=== PATIENT | male | born 1990 | race Caucasian/White ===

== ENCOUNTER 2021-06-27 00:38 | Emergency (ER) | payer OTHER ==
[~2021-06-27] VITALS: Ht 165.1 cm; Wt 68.0 kg
[2021-06-27] MEDS ORDERED: CIPR500T5 MT (02:18)
[2021-06-27] MEDS ORDERED: AMOX-424 MT (02:24)
[2021-06-27 02:36] VITALS: BP 121/63
== END 2021-06-27 02:36 | disposition home or self-care (01) ==
LOC: ER 00:38
DX: S92.424A Nondisplaced fracture of distal phalanx of right great toe, initial encounter for closed fracture (principal); L03.031 Cellulitis of right toe; X58.XXXA Exposure to other specified factors, initial encounter; Y93.89 Activity, other specified; Y92.89 Other specified places as the place of occurrence of the external cause; Y99.8 Other external cause status
CPT/HCPCS: 73660; 99283